=== PATIENT | female | born 1985 | race Hispanic/Latino ===

== ENCOUNTER 2021-03-17 02:19 | Inpatient (IN) | payer MEDICAID ==
[2021-03-17] MEDS ORDERED: miSOPROStol 200 MCG TAB PR PRN (03:24)
[2021-03-17] MEDS ORDERED: ePHEDrine SULFATE 50 MG/1 ML INJ IV PRN (03:24)
[2021-03-17] MEDS ORDERED: LIDOCAINE (2%) 20 MG/1 ML VIAL 20 ML MDV INFILTRATI ONE ×2 (03:24→09:30)
[2021-03-17] MEDS ORDERED: fentaNYL 100 MCG/2 ML INJ IV PRN (03:24)
[2021-03-17] MEDS ORDERED: ONDANSETRON 4 MG/2 ML INJ IV PRN (03:24)
[2021-03-17] MEDS ORDERED: TERBUTALINE 1 MG/1 ML INJ SUB-Q PRN (03:24)
[2021-03-17] MEDS ORDERED: CARBOPROST TROMETHAMINE 250 MCG/1 ML INJ IM PRN (03:24)
[2021-03-17] MEDS ORDERED: LOPERAMIDE 2 MG CAP PO PRN (03:24)
[2021-03-17] MEDS ORDERED: BUTORPHANOL 2 MG/1 ML INJ IV PRN (03:24)
[2021-03-17] MEDS ORDERED: ACETAMINOPHEN 325 MG TAB PO PRN (03:24)
[2021-03-17] MEDS ORDERED: AMPICILLIN/NS 2 GM/100 ML 2 GM/100 ML BAG IV ONE (03:24)
[2021-03-17] MEDS ORDERED: OXYTOCIN 10 UNIT/1 ML INJ IM PRN (03:24)
[2021-03-17] MEDS ORDERED: METHYLERGONOVINE MALEATE 0.2 MG/ML VIAL IM PRN (03:24)
[2021-03-17] MEDS ORDERED: MINERAL OIL 30 ML ORAL LIQD PO PRN (03:24)
[2021-03-17] MEDS ORDERED: LACTATED RINGERS 1,000 ML IV SCH (03:30)
[2021-03-17] MEDS ORDERED: OXYTOCIN DRIP 30 UNITS/500 ML BAG IV SCH ×2 (04:00→09:00)
[2021-03-17 04:14] LABS: Hematocrit 37.1 % (30.3-42.9); Hemoglobin 12.6 gm/dl (10.1-14.3); Mean Corpuscular HGB Conc 34 % (30-34); Mean Corpuscular Volume 89 fl (79-97); Platelet Count 246 K/mm3 (140-440); Red Blood Count 4.18 M/mm3 (3.65-5.03); Red Cell Distribution Width 13.5 % (13.2-15.2)
--- NOTE | 2021-03-17 04:23 | History and Physical Report ---
History of Present Illness Date of examination: 03/17/21 Date of admission: 03/17/21 03:24 Chief complaint: "my water broke" History of present illness: EDC Calculations by LMP: 03/26/2021 Past History : 7 Term Births: 4 Premature Births: 0 Living Children: 4 Para: 4 Mult. Births: 0 Prev : 0 Aborta: 2 Elect. Ab: 1 Spont. Ab: 1 Ectopics: 0 # 1 Delivery date: 08/28/2003 Weeks Gestation: 40 Delivery type: Hours of labor: 16 Anesthesia type: epidural Delivery location: [facility] weight: 7-6 Name: Jim Comments: Short cervix bedrest # 2 Delivery date: 09/18/2005 Weeks Gestation: 38 Delivery type: Hours of labor: ? Anesthesia type: none Delivery location: [facility] Infant Sex: Male weight: 6-7 Name: Lance # 3 Delivery date: 11/26/2006 Weeks Gestation: 40 Delivery type: Anesthesia type: epidural Delivery location: [facility] Infant Sex: Female weight: 6-0 Name: Harriet # 4 Delivery date: 2007 Delivery type: EAB # 5 Delivery date: 2017 Delivery type: SAB Comments: Blighted ovum No D&C # 6 Delivery date: 03/05/2020 Weeks Gestation: 37-39 Delivery type: Hours of labor: 15 Anesthesia type: none Delivery location: [facility] Sex: Female weight: 7-11 Name: Elizabeth Comments: No care/ Pre-eclampsia Past Medical History: H/o Drug Addiction Depression Hypertension Past Surgical History: Negative Past Surgical History Family History Summary: Reviewed history and no changes required: 02/04/2021 Social History: Marital Status: Single Children: 4 Occupation: Unemployed Risk Factors: Smoked Tobacco Use: Current every day smoker Cigarettes: Yes -- 1 pack(s) per day, Year started: 1999 Smokeless Tobacco Use: Never Counseled to quit/cut down: yes Passive smoke exposure: no Drug use: yes Substance: other Comments: 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 of genital herpes: no Genetic History ADVANCED MATERNAL AGE Congenital Heart Defect: Mom: no Dad: no Matthew Disease: Mom: no Dad: no Thalassemia Mom: no Dad: no Neural Tube Defect Mom: no Dad: no Down's Syndrome Mom: no Dad: no Scot-Sachs Mom: no Dad: no Sickle Cell Disease/Trait Mom: no Dad: no Hemophilia Mom: no Dad: no Muscular Dystrophy Mom: no Dad: no Cystic Fibrosis Mom: yes Dad: no Comments: trait [place] Chorea Mom: no Dad: no Mental Retardation Mom: no Dad: no Fragile X Mom: no Dad: no Other Genetic/Chromosomal Disorder Mom: no Dad: no Child w/other defect Mom: no Dad: no Enviromental Exposures Xray Exposure: yes Medication, drug, or alcohol use since LMP: yes Exposure to Cat Liter: no Comments: Chest x-ray Current Allergies (reviewed today): No known allergies Past History Past Medical History: other (see HPI) Past Surgical History: other (see HPI) SCRUMMASTER History: other (see HPI) Family/Genetic History: other (see HPI) - Obstetrical History Expected Date of Delivery: 03/26/21 Actual Gestation: 38 Week(s) 5 Day(s) : 7 Para: 4 Hx # Term Pregnancies: 4 Number of Pregnancies: 0 Spontaneous Abortions: 1 Induced : 1 Number of Living Children: 4 Medications and Allergies Allergies Allergy/AdvReac Type Severity Reaction Status Date / Time No Known Allergies Allergy Unverified 11/15/14 00:17 Home Medications Medication Instructions Recorded Confirmed Last Taken Type HYDROcodone/APAP 5-325 [[place] 1 each PO Q6HR PRN #12 tablet 04/30/19 03/05/20 Un known Rx 5-325 mg TAB] Citalopram [celeXA] 10 mg PO QDAY #30 tablet 03/06/20 Unknown Rx Melatonin [Melatonin 10MG TAB] 10 mg PO QHS #30 tablet 03/06/20 Unknown Rx traZODone [Desyrel] 50 mg PO QHS #30 tab 03/06/20 Unknown Rx labetaloL [Labetalol 200mg TAB] 200 mg PO BID 14 Days #28 tablet 03/08/20 Unknown Rx Active Meds: Active Medications Acetaminophen (Acetaminophen 325 Mg Tab) 650 mg PO Q4H PRN PRN Reason: Pain, Mild (1-3) Butorphanol Tartrate (Butorphanol 2 Mg/1 Ml Inj) 1 mg IV Q2H PRN PRN Reason: Pain, Moderate(4-6) LABOR PAIN Carboprost Tromethamine (Carboprost Tromethamine 250 Mcg/1 Ml Inj) 250 mcg IM ONCE PRN PRN Reason: Uterine Bleeding Ephedrine Sulfate (Ephedrine Sulfate 50 Mg/1 Ml Inj) 10 mg IV Q2M PRN PRN Reason: Hypotension Fentanyl (Fentanyl 100 Mcg/2 Ml Inj) 100 mcg IV Q2H PRN PRN Reason: Pain,Severe (7-10) LABOR PAIN Lactated Ringer's (Lactated Ringers) 1,000 mls @ 125 mls/hr IV DIRECT JUAN Oxytocin/Sodium Chloride (Pitocin/Ns 30 Unit/500ml) 30 units in 500 mls @ 40 mls/hr IV TITR JUAN; Protocol Ampicillin Sodium (Ampicillin/Ns 2 Gm/100 Ml) 2 gm in 100 mls @ 100 mls/hr IV ONCE ONE; Protocol Stop: 03/17/21 04:23 Last Admin: 03/17/21 04:20 Dose: 100 mls/hr Documented by: Loperamide HCl (Loperamide 2 Mg Cap) 2 mg PO ONCE PRN PRN Reason: give with Hemabate Methylergonovine Maleate (Methylergonovine Maleate 0.2 Mg/Ml Vial) 0.2 mg IM ONCE PRN PRN Reason: Uterine Bleeding Mineral Oil (Mineral Oil 30 Ml Oral Liqd) 30 ml PO QHS PRN PRN Reason: Constipation Misoprostol (Misoprostol 200 Mcg Tab) 800 mcg [place] ONCE PRN PRN Reason: Uterine Bleeding Ondansetron HCl (Ondansetron 4 Mg/2 Ml Inj) 4 mg IV Q8H PRN PRN Reason: Nausea And Vomiting Oxytocin (Oxytocin 10 Unit/1 Ml Inj) 10 unit IM ONCE PRN PRN Reason: Uterine Bleeding Terbutaline Sulfate (Terbutaline 1 Mg/1 Ml Inj) 0.25 mg SUB-Q ONCE PRN PRN Reason: Hyperstimulation/Hypertonicity Review of Systems All systems: negative - Vital Signs Vital signs: Vital Signs Temp Pulse Resp BP 98.5 F 93 H 18 150/87 03/17/21 02:54 03/17/21 02:54 03/17/21 02:54 03/17/21 02:54 Temp Pulse Resp BP Pulse Ox 98.5 F 96 H 18 123/66 03/17/21 02:54 03/17/21 04:05 03/17/21 02:54 03/17/21 04:05 - Physical Exam Breasts: Positive: normal Cardiovascular: Regular rate Lungs: Positive: Normal air movement Abdomen: Positive: normal appearance, soft Genitourinary (Female): Positive: normal external genitalia Vagina: Positive: normal moisture Uterus: Positive: normal size - Obstetrical FHR: category 1 Uterine Contraction Monitor Mode: External Cervical Dilatation: 4 (by rn dermatology) Uterine Contraction Pattern: Regular Uterine Tone Measurement Phase: Contraction Results Result Diagrams: 03/17/21 03:45 Abnormal lab results 03/17/21 Range/Units 03:45 WBC 13.9 H (4.5-11.0) K/mm3 All other labs normal. Assessment and Plan 35 y/o @ 38+5 arrived with SROM of clear fluids. GBS +. complicated by insufficient care until 33 weeks and HTN. Admission orders in EMR. Anticipate . - Patient Problems (1) GBS (group B Streptococcus carrier), +RV culture, currently Current Visit: Yes Status: Acute Plan to address problem: Ampicillin q4hrs until delivery (2) SROM (spontaneous rupture of membranes) Current Visit: Yes Status: Acute Plan to address problem: Limit SVE temp monitoring per hospital protocol (3) 38 weeks gestation of Current Visit: Yes Status: Acute (4) HTN (hypertension) Current Visit: Yes Status: Acute Qualifiers: Hypertension type: primary hypertension Qualified Code(s): I10 - Essential (primary) hypertension
[2021-03-17 06:26] LABS: Amphetamine Screen,Urine PRESUMPTIVE NEGATIVE; Benzodiazepines Screen,Urine PRESUMPTIVE NEGATIVE; Cannabinoid Screen,Urine PRESUMPTIVE NEGATIVE; Cocaine Screen,Urine PRESUMPTIVE NEGATIVE; Methadone Screen,Urine PRESUMPTIVE NEGATIVE; Opiate Screen,Urine PRESUMPTIVE NEGATIVE
[2021-03-17] MEDS ORDERED: AMPICILLIN/NS 1 GM/50 ML 1 GM/50 ML BAG IV SCH (08:00)
--- NOTE | 2021-03-17 09:49 | Progress Note ---
Assessment and Plan patient c/o increased pressure with ctx. SVE done. will start pitocin augmentation PRN. Anticipate . - Patient Problems (1) GBS (group B Streptococcus carrier), +RV culture, currently Current Visit: Yes Status: Acute (2) SROM (spontaneous rupture of membranes) Current Visit: Yes Status: Acute (3) 38 weeks gestation of Current Visit: Yes Status: Acute (4) HTN (hypertension) Current Visit: Yes Status: Acute Qualifiers: Hypertension type: primary hypertension Qualified Code(s): I10 - Essential (primary) hypertension Subjective - Subjective Date of service: 03/17/21 Principal diagnosis: IUP @ 38+5; SROM Interval history: EDC Calculations by LMP: 03/26/2021 Past History : 7 Term Births: 4 Premature Births: 0 Living Children: 4 Para: 4 Mult. Births: 0 Prev : 0 Aborta: 2 Elect. Ab: 1 Spont. Ab: 1 Ectopics: 0 # 1 Delivery date: 08/28/2003 Weeks Gestation: 40 Delivery type: Hours of labor: 16 Anesthesia type: epidural Delivery location: [facility] weight: 7-6 Name: Jim Comments: Short cervix bedrest # 2 Delivery date: 09/18/2005 Weeks Gestation: 38 Delivery type: Hours of labor: ? Anesthesia type: none Delivery location: [facility] Sex: Male weight: 6-7 Name: Lance # 3 Delivery date: 11/26/2006 Weeks Gestation: 40 Delivery type: Anesthesia type: epidural Delivery location: [facility] Sex: Female weight: 6-0 Name: Harriet # 4 Delivery date: 2007 Delivery type: EAB # 5 Delivery date: 2017 Delivery type: SAB Comments: Blighted ovum No D&C # 6 Delivery date: 03/05/2020 Weeks Gestation: 37-39 Delivery type: Hours of labor: 15 Anesthesia type: none Delivery location: [facility] Sex: Female weight: 7-11 Name: Elizabeth Comments: No care/ Pre-eclampsia Past Medical History: H/o Drug Addiction Depression Hypertension Past Surgical History: Negative Past Surgical History Family History Summary: Reviewed history and no changes required: 02/04/2021 Social History: Marital Status: Single Children: 4 Occupation: Unemployed Risk Factors: Smoked Tobacco Use: Current every day smoker Cigarettes: Yes -- 1 pack(s) per day, Year started: 1999 Smokeless Tobacco Use: Never Counseled to quit/cut down: yes Passive smoke exposure: no Drug use: yes Substance: other Comments: 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 of genital herpes: no Genetic History ADVANCED MATERNAL AGE Congenital Heart Defect: Mom: no Dad: no Matthew Disease: Mom: no Dad: no Thalassemia Mom: no Dad: no Neural Tube Defect Mom: no Dad: no Down's Syndrome Mom: no Dad: no Scot-Sachs Mom: no Dad: no Sickle Cell Disease/Trait Mom: no Dad: no Hemophilia Mom: no Dad: no Muscular Dystrophy Mom: no Dad: no Cystic Fibrosis Mom: yes Dad: no Comments: trait [place] Chorea Mom: no Dad: no Mental Retardation Mom: no Dad: no Fragile X Mom: no Dad: no Other Genetic/Chromosomal Disorder Mom: no Dad: no Child w/other defect Mom: no Dad: no Enviromental Exposures Xray Exposure: yes Medication, drug, or alcohol use since LMP: yes Exposure to Cat Liter: no Comments: Chest x-ray Current Allergies (reviewed today): No known allergies Patient reports: loss of fluid, contractions Objective - Vital Signs Vital Signs: Vital Signs - 12hr 03/17/21 03/17/21 03/17/21 02:54 03:06 04:05 Temperature 98.5 F Pulse Rate 93 H 88 96 H Respiratory 18 Rate Blood Pressure 150/87 131/74 123/66 Blood Pressure 150/87 [Left] O2 Sat by Pulse Oximetry [ Throughout] 03/17/21 03/17/21 03/17/21 05:30 05:34 06:32 Temperature Pulse Rate 87 87 Respiratory 16 Rate Blood Pressure 137/76 131/71 Blood Pressure [Left] O2 Sat by Pulse Oximetry [ Throughout] 03/17/21 03/17/2103/17/21 07:30 07:32 07:55 Temperature 98.5 F Pulse Rate 92 H 96 H Respiratory 16 Rate Blood Pressure 133/74 136/71 Blood Pressure [Left] O2 Sat by Pulse 99 Oximetry [ Throughout] 03/17/21 03/17/21 03/17/21 08:33 09:12 09:32 Temperature Pulse Rate 92 H 98 H Respiratory 16 Rate Blood Pressure 123/68 137/84 Blood Pressure [Left] O2 Sat by Pulse Oximetry [ Throughout] - Exam Cardiovascular: Regular rate Lungs: Normal air movement Abdomen: Present: normal appearance, soft Vulva: both: normal Uterus: Present: normal FHR: category 1 Uterine Contraction Monitor Mode: External Cervical Dilatation: 6.5 Cervical Effacement Percentage: 80 station: -1 Uterine Contraction Frequency (min): 2-3 Uterine Contraction Duration: 60 Uterine Contraction Pattern: Regular Uterine Tone Measurement Phase: Contraction Extremities: normal - Labs Labs: Abnormal Labs 03/17/21 03:45 WBC 13.9 H Laboratory Results - last 24 hr 03/17/21 03/17/21 03/17/21 03:45 03:45 03:45 WBC 13.9 H RBC 4.18 Hgb 12.6 Hct 37.1 MCV 89 MCH 30 MCHC 34 RDW 13.5 Plt Count 246 Urine Opiates Screen Urine Methadone Screen Ur Barbiturates Screen Ur Phencyclidine Scrn Ur Amphetamines Screen U Benzodiazepines Scrn Urine Cocaine Screen U Marijuana (THC) Screen Drugs of Abuse Note Syphilis IgG Antibody Nonreactive Blood Type A POSITIVE Antibody Screen Negative 03/17/21 04:48 WBC RBC Hgb Hct MCV MCH MCHC RDW Plt Count Urine Opiates Screen Presumptive negative Urine Methadone Screen Presumptive negative Ur Barbiturates Screen Presumptive negative Ur Phencyclidine Scrn Presumptive negative Ur Amphetamines Screen Presumptive negative U Benzodiazepines Scrn Presumptive negative Urine Cocaine Screen Presumptive negative U Marijuana (THC) Screen Presumptive negative Drugs of Abuse Note Disclamer Syphilis IgG Antibody Blood Type Antibody Screen
--- NOTE | 2021-03-17 12:53 | Procedure Note ---
OB Delivery Note - Delivery Date of Delivery: 03/17/21 Budget And Policy Analyst: ARTUR URIAS (Desean Rodriguez CNM) Estimated blood loss: other (150) - Vaginal Delivery presentation: vertex Delivery position: OA Intrapartum events: none Delivery induction: none Delivery augmentation: pitocin Delivery monitor: external FHT, external uterine Route of delivery: Delivery placenta: spontaneous Delivery cord: 3 umbilical vessels Episiotomy: none Delivery laceration: none Anesthesia: none Delivery comments: baby boy birthed over intact perineum, all counts correct. no lacerations to repair. - Infant A at 1 minute: 8 at 5 minutes: 9 Gender: Male (6#15)
[2021-03-17] MEDS ORDERED: diphenhydrAMINE 25 MG CAP PO PRN (14:13)
[2021-03-17] MEDS ORDERED: LANOLIN/ZINC/DIMETHICONE (LANSINOH) 7 GM TP PRN ×2 (14:13)
[2021-03-17] MEDS ORDERED: WITCH HAZEL/ GLYCERIN PAD TP PRN (14:13)
[2021-03-17] MEDS ORDERED: BENZOCAINE/MENTHOL 20/0.5% TOP SPRAY 56 GM TP PRN (14:13)
[2021-03-17] MEDS ORDERED: PROMETHAZINE 25 MG TAB PO PRN (14:13)
[2021-03-17] MEDS ORDERED: IBUPROFEN 800 MG TAB PO SCH (15:00)
[2021-03-17] MEDS ORDERED: IBUPROFEN 600 MG TAB PO SCH (15:00)
[2021-03-17] MEDS: IBUPROFEN 800 MG TAB PO SCH (15:04)
[2021-03-17] MEDS: FERROUS SULFATE 325 MG TAB PO SCH (21:14)
[2021-03-17] MEDS: NICOTINE 14 MG/24 HR PATCH TD SCH (21:14)
[2021-03-17] MEDS ORDERED: MAGNESIUM HYDROXIDE (MOM) ORAL LIQD UDC PO PRN (22:00)
[2021-03-17] MEDS ORDERED: ACETAMINOPHEN 500 MG TAB PO ONE (22:05)
[2021-03-18 02:19] LABS: Hemoglobin 11.8 gm/dl (10.1-14.3)
--- NOTE | 2021-03-18 06:48 | Discharge Summary ---
Providers - Providers Date of Admission: 03/17/21 03:24 Attending physician: MIRTHA SETHI Primary care physician: MIRTHA SETHI Plan - Provider Discharge Summary Additional instructions: [] Smoking cessation referral if applicable(refer to patient education folder for contact #) [] Refer to [facility] Booklet Call your doctor immediately for: * Fever > 100.5 * Heavy vaginal bleeding ( >1 pad per hour) * Severe persistent headache * Shortness of breath * Reddened, hot, painful area to leg or breast * Drainage or odor from incision. * Keep incision clean and dry at all times and follow doctor's instructions regarding bathing/showering - Follow up plan Follow up: MIRTHA SETHI MD [Primary Care Provider] - 7 Days
--- NOTE | 2021-03-18 06:55 | Event Note ---
Date: 03/18/21 (poss d/c today) Pt OOB to toilet c/o involution pain. Encouraged alternating Motrin and Tylenol for best relief, hydration, ambulation. BP have be labile 120/70 to 160/90(X1). Pt has a hx of mild Htn. Will order PreE labs and urine Will start Labetalol 200mg BID now. Will consult with Dr Booth for poss d/c later today
[2021-03-18] MEDS ORDERED: ACETAMINOPHEN 500 MG TAB PO SCH ×2 (07:00)
[2021-03-18] MEDS: IBUPROFEN 800 MG TAB PO SCH ×4 (07:04→22:37)
--- NOTE | 2021-03-18 07:06 | Discharge Summary ---
Providers - Providers Date of Admission: 03/17/21 03:24 Date of discharge: 03/18/21 (pt desires d/c) Attending physician: MIRTHA SETHI Primary care physician: MIRTHA SETHI Hospitalization Reason for admission: active labor, rupture of membranes, IUP at term Delivery: Episiotomy: none Laceration: none Other procedures: none complications: other (mildly elevated BP Labetalol 200mg po started) Discharge diagnosis: IUP at term delivered [place] baby: male Hospital course: uncomplicated vaginal delivery Pt c/o cramping encouraged alternating Tylenol and Motrin for best relief. BP 130/70 Denies GALVEZ, blurred vision, chest pain. Labetalol 200mg started. PreE labs drawn. FF below umb Lochia small Perineum intact. H&H No s/sx of anemia. Stable s/p vag delivery. P: will d/c later today with instructions Pt will rto 1 week BP check RX called to [facility] as per pt request. Condition at discharge: Good Disposition: DC-01 TO HOME OR SELFCARE - Discharge Diagnoses (1) (normal spontaneous vaginal delivery) Status: Acute Comment: RTO 4weeks PP Care (2) HTN (hypertension) Status: Acute Qualifiers: Hypertension type: primary hypertension Qualified Code(s): I10 - Essential (primary) hypertension Comment: RTO 1 week for BP check RX Labetalol 200mg po BID Plan - Provider Discharge Summary Activity: routine, no sex for 6 weeks, no heavy lifting 4 weeks, no strenuous exercise Diet: other (decrease salt/sodium in diet) Instructions: routine Additional instructions: [] Smoking cessation referral if applicable(refer to patient education folder for contact #) [] Refer to [facility] Booklet Call your doctor immediately for: * Fever > 100.5 * Heavy vaginal bleeding ( >1 pad per hour) * Severe persistent headache * Shortness of breath * Reddened, hot, painful area to leg or breast * Drainage or odor from incision. * Keep incision clean and dry at all times and follow doctor's instructions regarding bathing/showering - Follow up plan Follow up: MIRTHA SETHI MD [Primary Care Provider] - 7 Days (Congratulations! Please call [phone] to schedule your blood pressure check and your son's circumcision in 1 week. Bring the EMLA cream with you to his visit. Do NOT use at home. Take medications as prescribed. Call with headache, not relieved with Tylenol, blurred vision, chest pain. Call with any concerns.)
[2021-03-18 09:05] LABS: Bacteria,Urine 1+ /HPF (Negative); Bilirubin,Urine NEG (Negative); Blood,Urine LG (Negative); Color,Urine Straw (Yellow); Mucus,Urine FEW /HPF; Protein,Urine <15 mg/dL mg/dL (Negative); Urobilinogen,Urine < 2.0 mg/dL (<2.0)
[2021-03-18 09:08] LABS: RBC,Urine > 182.0 /HPF (0.0-6.0)
[2021-03-18] MEDS: FERROUS SULFATE 325 MG TAB PO SCH ×2 (09:13→22:38)
[2021-03-18] MEDS: PRENATAL VIT27-FE FUMARATE-FOLIC ACID VIT TAB PO SCH (09:13)
[2021-03-18] MEDS: ACETAMINOPHEN 325 MG TAB PO SCH ×3 (09:13→23:25)
[2021-03-18] MEDS: NICOTINE 14 MG/24 HR PATCH TD SCH (09:13)
[2021-03-18 09:30] LABS: Hematocrit 34.2 % (30.3-42.9); Hemoglobin 11.6 gm/dl (10.1-14.3); Mean Corpuscular HGB Conc 34 % (30-34); Mean Corpuscular Volume 89 fl (79-97); Platelet Count 213 K/mm3 (140-440); Red Blood Count 3.87 M/mm3 (3.65-5.03); Red Cell Distribution Width 13.9 % (13.2-15.2)
[2021-03-18 09:37] LABS: Alanine Aminotransferase 10 units/L (7-56); Uric Acid 4.5 mg/dL (3.5-7.6)
[2021-03-19] MEDS: IBUPROFEN 800 MG TAB PO SCH (05:12)
[2021-03-19] MEDS: ACETAMINOPHEN 325 MG TAB PO SCH (05:13)
[2021-03-19] MEDS: PRENATAL VIT27-FE FUMARATE-FOLIC ACID VIT TAB PO SCH (10:46)
[2021-03-19] MEDS: FERROUS SULFATE 325 MG TAB PO SCH (10:46)
[2021-03-19 13:27] VITALS: BP 121/70
== END 2021-03-19 12:30 | disposition home or self-care (01) | DRG 774 ==
LOC: TRG 02:19 → APU 02:25 → TRG 03:24 → LD 03:24 → OB 13:29
PROVIDERS: ADMIT Obstetrics & Gynecology; ATTEND Obstetrics & Gynecology
PROC: 10E0XZZ Delivery of Products of Conception, External Approach (ICD-10-PCS; principal; 2021-03-17)
DX: O99.824 Streptococcus B carrier state complicating childbirth (principal); O10.02 Pre-existing essential hypertension complicating childbirth; O42.02 Full-term premature rupture of membranes, onset of labor within 24 hours of rupture; Z3A.38 38 weeks gestation of pregnancy; Z37.0 Single live birth; O99.344 Other mental disorders complicating childbirth; O99.334 Smoking (tobacco) complicating childbirth; F17.210 Nicotine dependence, cigarettes, uncomplicated; F32.9 Major depressive disorder, single episode, unspecified; Z20.822 Contact with and (suspected) exposure to COVID-19
CPT/HCPCS: 36415; 59025; 80307; 81001; 82565; 83615; 84450; 84460; 84550; 85014; 85018; 85027; 86592; 86850; 86900; 86901; 87086; G0378; J0290; J0595; J2590; J3010; J7120; U0003

== ENCOUNTER 2021-05-22 20:27 | Emergency (ER) | payer MEDICAID ==
[2021-05-22 21:48] VITALS: BP 160/117
--- NOTE | 2021-05-22 21:50 | Emergency Department Report ---
ED Allergic Reaction HPI - General Chief complaint: Allergic Reaction Stated complaint: ALLERGIC REACTION,TOOTH ABSCESS Time Seen by Provider: 05/22/21 21:30 Source: patient, EMS Mode of arrival: Ambulatory Limitations: No Limitations - History of Present Illness Initial Comments: Patient is a 35-year-old female that presents emergency room with complaints of allergic reaction and facial swelling and tooth abscess. Patient states that 8 AM her left face started swelling and a tooth infection. Patient states that the facial swelling and tooth infection are worsening. Patient states she has not seen her dentist. Patient states that an hour prior to arrival she was at urgent care and felt like her throat was starting to swell and having difficulty swallowing. Patient states that she was given steroids at the urgent care and EMS was called to bring her here. Patient states that she received Benadryl from EMS. Patient states the throat swelling and the symptoms of the allergic reaction have resolved. Patient states the facial swelling where the tooth infection has also improved with the steroids. Patient denies fever and chills. Patient denies chest pain. Patient denies shortness of breath. Patient denies difficulty swallowing at this time. Patient denies throat pain. Patient denies fever. Patient states she is not vaccinated against COVID-19. Patient denies recent travel. Patient denies recent international travel. Patient denies exposure to the novel coronavirus. Patient denies sick contacts. Patient denies fever and chills. Patient denies cough. Patient denies diarrhea. Patient denies coming in contact with anybody with symptoms of the novel coronavirus. MD Complaint: allergic reaction, facial swelling -: Sudden Exposure: unknown Symptoms: itching, facial swelling, difficulty swallowing Treatment Prior to Arrival: benadryl, steroids Previous Allergy History: none - Related Data Previous Rx's Medication Instructions Recorded Last Taken Type HYDROcodone/APAP 5-325 [[place] 1 each PO Q6HR PRN #12 tablet 04/30/19 Unknown Rx 5-325 mg TAB] Citalopram [celeXA] 10 mg PO QDAY #30 tablet 03/06/20 Unknown Rx Melatonin [Melatonin 10MG TAB] 10 mg PO QHS #30 tablet 03/06/20 03/11/21 Rx traZODone [Desyrel] 50 mg PO QHS #30 tab 03/06/20 Unknown Rx labetaloL [Labetalol 200mg TAB] 200 mg PO BID 14 Days #28 tablet 03/08/20 Unknown Rx Amoxicillin [Amoxicillin TAB] 875 mg PO BID 10 Days #20 tablet 05/22/21 Unknown Rx methylPREDNISolone [Medrol 4MG 4 mg PO DAILY 6 Days #1 tab.ds.pk 05/22/21 Unknown Rx DOSEPAK (21 tabs)] Allergies Allergy/AdvReac Type Severity Reaction Status Date / Time No Known Allergies Allergy Verified 03/17/21 15:07 ED Review of Systems ROS: Stated complaint: ALLERGIC REACTION,TOOTH ABSCESS Other details as noted in HPI Constitutional: denies: chills, fever Eyes: denies: eye pain, eye discharge, vision change ENT: as per HPI, dental pain. denies: ear pain, throat pain Respiratory: denies: cough, shortness of breath, wheezing Cardiovascular: denies: chest pain, palpitations Endocrine: no symptoms reported Gastrointestinal: denies: abdominal pain, nausea, diarrhea Genitourinary: denies: urgency, dysuria, discharge Musculoskeletal: denies: back pain, joint swelling, arthralgia Skin: denies: rash, lesions Neurological: denies: headache, weakness, paresthesias Psychiatric: denies: anxiety, depression Hematological/Lymphatic: denies: easy bleeding, easy bruising ED Past Medical Hx - Past Medical History Previous Medical History?: Yes Hx Hypertension: Yes (2020 and currrent) Hx Diabetes: No Hx Deep Vein Thrombosis: No Hx Renal Disease: No Hx Sickle Cell Disease: No Hx Seizures: No Hx Asthma: Yes (Childhood) Hx COPD: No Hx HIV: No - Surgical History Past Surgical History?: Yes Additional Surgical History: - Family History Family history: no significant - Social History Smoking Status: Current Every Day Smoker Substance Use Type: None - Medications Home Medications: Home Medications Medication Instructions Recorded Confirmed Last Taken Type HYDROcodone/APAP 5-325 [[place] 1 each PO Q6HR PRN #12 tablet 04/30/19 03/17/21 Unknown Rx 5-325 mg TAB] Citalopram [celeXA] 10 mg PO QDAY #30 tablet 03/06/20 03/17/21 Unknown Rx Melatonin [Melatonin 10MG TAB] 10 mg PO QHS #30 tablet 03/06/20 03/17/21 03/11/21 Rx traZODone [Desyrel] 50 mg PO QHS #30 tab 03/06/20 03/17/21 Unknown Rx labetaloL [Labetalol 200mg TAB] 200 mg PO BID 14 Days #28 tablet 03/08/20 03/17/21 Unknown Rx Amoxicillin [Amoxicillin TAB] 875 mg PO BID 10 Days #20 tablet 05/22/21 Unknown Rx methylPREDNISolone [Medrol 4MG 4 mg PO DAILY 6 Days #1 tab.ds.pk 05/22/21 Unknown Rx DOSEPAK (21 tabs)] ED Physical Exam - General Limitations: No Limitations General appearance: alert, in no apparent distress - Head Head exam: Present: atraumatic, normocephalic - Eye Eye exam: Present: normal appearance - ENT ENT exam: Present: mucous membranes moist, other (Left-sided facial swelling. Left lower jaw gingivitis noted. No localized abscess noted.) - Neck Neck exam: Present: normal inspection, full ROM. Absent: tenderness, meningismus, lymphadenopathy, thyromegaly - Respiratory Respiratory exam: Present: normal lung sounds bilaterally. Absent: respiratory distress, wheezes, rales, rhonchi, stridor, chest wall tenderness - Cardiovascular Cardiovascular Exam: Present: regular rate, normal rhythm, normal heart sounds. Absent: systolic murmur, diastolic murmur, rubs, gallop - GI/Abdominal GI/Abdominal exam: Present: soft, normal bowel sounds - Extremities Exam Extremities exam: Present: normal inspection - Back Exam Back exam: Present: normal inspection - Neurological Exam Neurological exam: Present: alert, oriented X3 - Psychiatric Psychiatric exam: Present: normal affect, normal mood - Skin Skin exam: Present: warm, dry, intact, normal color. Absent: rash ED Course - Reevaluation(s) Reevaluation #1: I discussed all results and clinical findings with patient. I discussed plan of care with patient. Patient agrees with plan of care. Patient is stable for discharge. Patient will be discharged home. Patient given discharge instructions. Patient voiced understanding of discharge instructions. 05/22/21 21:49 ED Medical Decision Making - Medical Decision Making Patient is a 35-year-old female who presents emergency room with complaints of dental swelling, difficulty swallowing, possible allergic reaction. Patient has a normal exam except for the gingival and dental infection. Patient responded well to steroids and Benadryl. Patient had a full exam. Patient does not have any difficulties breathing. Patient has no stridor. Patient has no signs of allergic reaction however the patient will be treated with steroids and oral antibiotics. Patient given oral antibiotics for the dental infection. Patient instructed to follow-up with a dentist. Patient instructed to follow-up with her primary care. I discussed all results and clinical findings with patient. I discussed plan of care with patient. Patient agrees with plan of care. Patient is stable for discharge. Patient will be discharged home. Patient given discharge instructions. Patient voiced understanding of discharge instructions. - Differential Diagnosis Allergic reaction, dental infection, facial swelling, difficulty swallowing Critical care attestation.: If time is entered above; I have spent that time in minutes in the direct care of this critically ill patient, excluding procedure time. ED Disposition Clinical Impression: Dental infection, Pain, dental Allergic reaction Qualifiers: Encounter type: initial encounter Qualified Code(s): T78.40XA - Allergy, unspecified, initial encounter Disposition: HOME / SELF CARE / HOMELESS Is pt being admited?: No Does the pt Need Aspirin: No Condition: Stable Instructions: Allergies, Adult, [id number], Diet and Dental Disease, Dental Extraction Additional Instructions: Patient to follow-up with primary care in 2 to 3 days. Patient to follow-up with dentist in 2 to 3 days. Patient to rest. Patient to increase water. Patient to take Tylenol or ibuprofen as needed for pain. Patient to take meds as directed. Patient to return to the ER if condition worsens, changes or new symptoms arise. Prescriptions: Amoxicillin [Amoxicillin TAB] 875 mg PO BID 10 Days #20 tablet methylPREDNISolone [Medrol 4MG DOSEPAK (21 tabs)] 4 mg PO DAILY 6 Days #1 tab.ds.pk Referrals: LELE ANTONY MD [Staff Physician] - 2-3 Days Time of Disposition: 21:56
== END 2021-05-22 22:00 | disposition home or self-care (01) ==
LOC: ED 20:27
DX: K04.7 Periapical abscess without sinus (principal); K08.89 Other specified disorders of teeth and supporting structures; T78.40XA Allergy, unspecified, initial encounter; I10 Essential (primary) hypertension; J45.909 Unspecified asthma, uncomplicated; Z98.890 Other specified postprocedural states; F17.200 Nicotine dependence, unspecified, uncomplicated; X58.XXXA Exposure to other specified factors, initial encounter
CPT/HCPCS: 99283